=== PATIENT | male | born 1990 | race Hispanic/Latino ===

== ENCOUNTER 2023-10-21 15:19 | Emergency (ER) | payer OTHER ==
[~2023-10-21] VITALS: Ht 170.2 cm; Wt 77.1 kg
[2023-10-21 15:53] LABS: BASOPHILS # (AUTO) 0.03 K/uL (0.00-0.20); BASOPHILS % (AUTO) 0.3 % (0.0-5.0); EOSINOPHILS # (AUTO) 0.07 K/uL (0.00-0.70); EOSINOPHILS % (AUTO) 0.6 % (0.0-8.0); HEMATOCRIT 45.2 % (42-54); IMMATURE GRANULOCYTE ABSOLUTE 0.04 K/uL (0-1); LYMPHOCYTES # (AUTO) 1.1 K/uL (1.0-4.8); LYMPHOCYTES % (AUTO) 9.7 % (21.0-51.0); MEAN CORPUSCULAR HEMOGLOBIN 28.4 pg (27.0-33.0); MEAN CORPUSCULAR VOLUME 81.1 fL (79-99); MONOCYTES # (AUTO) 0.7 K/uL (0.1-1.0); MONOCYTES % (AUTO) 5.8 % (3.0-13.0); NEUTROPHILS # (AUTO) 9.5 K/uL (1.8-7.7); NEUTROPHILS % (AUTO) 83.2 % (40.0-77.0); PLATELET COUNT (AUTO) 265 K/uL (130-400); RED BLOOD CELL COUNT(AUTO) 5.57 MIL/uL (4.50-6.20); RED CELL DISTRIBUTION WIDTH 12.6 % (11.0-15.5); WHITE BLOOD COUNT (AUTO) 11.4 K/uL (4.8-10.8)
[2023-10-21 16:16] LABS: CREATININE 0.9 mg/dL (0.5-1.5); POTASSIUM 4.4 mmol/L (3.5-5.1)
[2023-10-21 16:20] LABS: WBC MORPHOLOGY CONSISTENT W/DIFF
[2023-10-21] MEDS ORDERED: CYCL10TA16 PO (16:53)
[2023-10-21] MEDS ORDERED: IBUP-2076 PO (16:53)
[2023-10-21] MEDS: ACETAMINOPHEN 650 MG/20.3 ML UDCUP PEG ONE (17:16)
[2023-10-21] MEDS: CYCLOBENZAPRINE HCL 10 MG TABLET PO ONE (17:17)
[2023-10-21 17:28] VITALS: BP 144/80; PULSE 78; RESP 18; O2SAT 98
== END 2023-10-21 17:39 | disposition home or self-care (01) ==
LOC: EDH 15:19 → EEVIPCON 15:19 → EDH 17:39
DX: T71.9XXA Asphyxiation due to unspecified cause, initial encounter (principal); I10 Essential (primary) hypertension; Y08.89XA Assault by other specified means, initial encounter; Y93.89 Activity, other specified; Y92.89 Other specified places as the place of occurrence of the external cause; Y99.8 Other external cause status
CPT/HCPCS: 36415; 70360; 72040; 80048; 84484; 85025; 93005